=== PATIENT | female | born 1995 | race Caucasian/White ===

== ENCOUNTER 2021-05-08 10:42 | Observation (INO) | payer OTHER ==
[~2021-05-08] VITALS: Ht 170.2 cm; Wt 90.9 kg
[2021-05-08] MEDS ORDERED: RHOGAM FROM BLOOD BANK 1 NOTE EA IM/IV ONE (14:30)
[2021-05-25] MEDS ORDERED: OXYC1TAB12 PO (06:02)
== END 2021-05-08 14:35 | disposition home or self-care (01) ==
LOC: LDOP 10:42 → LDIP 11:46
PROVIDERS: ADMIT Obstetrics & Gynecology; ATTEND Obstetrics & Gynecology
DX: Z04.1 Encounter for examination and observation following transport accident (principal); Z3A.37 37 weeks gestation of pregnancy; V53.6XXA Passenger in pick-up truck or van injured in collision with car, pick-up truck or van in traffic accident, initial encounter; Y93.89 Activity, other specified; Y92.488 Other paved roadways as the place of occurrence of the external cause
CPT/HCPCS: 36415; 59025; 85460; 85461; 86850; 86900; 96372; G0378; J2790; 36430

== ENCOUNTER 2021-05-22 10:20 | Inpatient (IN) | payer OTHER ==
[~2021-05-22] VITALS: Ht 170.2 cm; Wt 92.0 kg
[2021-05-22] MEDS ORDERED: METOCLOPRAMIDE 5 MG/ML, 2ML IV ONE (10:30)
[2021-05-22] MEDS ORDERED: SODIUM CITRATE/CITRIC ACID 30 ML UDC PO ONE (10:30)
[2021-05-22] MEDS ORDERED: LACTATED RINGERS 1,000 ML IV SCH (10:30)
[2021-05-22] MEDS ORDERED: LACTATED RINGERS 1,000 ML IVBOLUS ONE (10:30)
[2021-05-22] MEDS ORDERED: SODIUM CITRATE/CITRIC ACID 15 ML UDC ONE (11:00)
[2021-05-22] MEDS ORDERED: OXYTOCIN 30U/ 0.9% NaCL 500ML 500 ML ONE (11:01)
[2021-05-22] MEDS ORDERED: NEWBORN KIT ONE (11:02)
[2021-05-22 11:10] LABS: BASOPHILS % (AUTO) 1 % (0-1); EOSINOPHILS % (AUTO) 1 % (1-7); LYMPHOCYTES % (AUTO) 17 % (22-44); MEAN CORPUSCULAR HEMOGLOBIN 28.3 pg (27.0-34.8); MEAN CORPUSCULAR HGB CONC 34.8 g/dL (32.4-35.8); MEAN PLATELET VOLUME 8.1 fL (7.4-10.4); MONOCYTES % (AUTO) 4 % (2-9); NEUTROPHILS % (AUTO) 77 % (42-75); PLATELET COUNT 253 x10^3/uL (130-400); RED BLOOD COUNT 4.22 x10^6/uL (3.82-5.3)
[2021-05-22] MEDS ORDERED: DEXAMETHASONE 4 MG/ML, 1ML ONE (11:39)
[2021-05-22] MEDS ORDERED: ONDANSETRON 2MG/ML, 2ML ONE (11:39)
[2021-05-22] MEDS ORDERED: CEFAZOLIN 1,000 MG ONE (11:39)
[2021-05-22] MEDS ORDERED: EPHEDRINE 50 MG/ML, 1ML ONE (11:39)
[2021-05-22] MEDS ORDERED: KETOROLAC 30 MG/1 ML ONE (11:39)
[2021-05-22] MEDS ORDERED: OXYTOCIN 10 UNITS/ML, 1ML ONE (11:39)
[2021-05-22] MEDS ORDERED: PHENYLEPHRINE 10 MG/ML ONE (11:39)
[2021-05-22] MEDS ORDERED: EPHEDRINE 50 MG/ML, 1ML IVPush PRN (12:00)
[2021-05-22] MEDS ORDERED: PROMETHAZINE 25 MG/ML, 1ML IV PRN (12:00)
[2021-05-22] MEDS ORDERED: FENTANYL PF 100 MCG/2ML IV PRN (12:00)
[2021-05-22] MEDS ORDERED: ONDANSETRON 2MG/ML, 2ML IVPush PRN (12:00)
[2021-05-22] MEDS ORDERED: MEPERIDINE/PF 25MG/0.5ML IVPush PRN (12:00)
[2021-05-22] MEDS ORDERED: LABETALOL 5MG/ML, 20ML IV PRN (12:00)
[2021-05-22] MEDS ORDERED: ALBUTEROL SULFATE 2.5 MG/3 ML NPPB PRN (12:00)
[2021-05-22] MEDS ORDERED: METOPROLOL 1 MG/ML, 5ML IV PRN (12:00)
[2021-05-22] MEDS ORDERED: HYDROcodone/APAP 7.5-325MG/15ML UDC PO PRN (12:00)
[2021-05-22] MEDS ORDERED: HYDROmorphone 2 MG/ML, 1ML IVPush PRN (12:00)
[2021-05-22] MEDS ORDERED: OXYcodone 5 MG/5 ML ORAL.SOL UDC PO PRN (12:00)
[2021-05-22] MEDS ORDERED: hydrALAzine 20 MG/ML, 1ML IV PRN (12:00)
[2021-05-22] MEDS ORDERED: HYDROmorphone 2 MG/ML, 1ML ONE (13:00)
[2021-05-22] MEDS ORDERED: FENTANYL PF 100 MCG/2ML ONE (13:00)
[2021-05-22 16:00] VITALS: BP 120/80
[2021-05-22] MEDS ORDERED: ONDANSETRON 2MG/ML, 2ML IV PRN (16:00)
[2021-05-22] MEDS: OXYTOCIN 30U/ 0.9% NaCL 500ML 500 ML IV SCH (16:00)
[2021-05-22] MEDS: LACTATED RINGERS 1,000 ML IV SCH ×2 (16:00)
[2021-05-22] MEDS ORDERED: ACETAMINOPHEN 325 MG TABLET PO PRN ×2 (16:00)
[2021-05-22] MEDS ORDERED: MISOPROSTOL 200 MCG TABLET PR PRN (16:00)
[2021-05-22] MEDS ORDERED: MORPHINE SULFATE 4 MG/ML, 1ML IVPush PRN (16:00)
[2021-05-22] MEDS ORDERED: morphine SULFATE 10 MG/ML, 1ML IVPush PRN ×2 (16:00→16:30)
[2021-05-22] MEDS: OXYcodone/APAP 5/325MG TABLET PO PRN ×2 (17:29→22:14)
[2021-05-22] MEDS: KETOROLAC 30 MG/1 ML IV SCH (19:45)
[2021-05-22 20:00] VITALS: BP 115/69
[2021-05-22 23:54] VITALS: BP 106/68
[2021-05-23] MEDS: KETOROLAC 30 MG/1 ML IV SCH ×4 (01:45→19:40)
[2021-05-23] MEDS: OXYcodone/APAP 5/325MG TABLET PO PRN ×7 (01:50→20:28)
[2021-05-23] MEDS: LACTATED RINGERS 1,000 ML IV SCH ×2 (02:00)
[2021-05-23] MEDS: OXYTOCIN 30U/ 0.9% NaCL 500ML 500 ML IV SCH (02:00)
[2021-05-23 04:00] VITALS: BP 109/64
[2021-05-23 07:30] VITALS: BP 111/69
[2021-05-23] MEDS: PRENATAL VIT/IRON/FA 1 EACH TABLET PO SCH (10:35)
[2021-05-23] MEDS: DOCUSATE 100 MG CAPSULE PO PRN ×2 (10:35→20:28)
[2021-05-23] MEDS ORDERED: RHOGAM FROM BLOOD BANK 1 NOTE EA IM/IV ONE (19:30)
[2021-05-23 19:45] VITALS: BP 126/77
[2021-05-23] MEDS: SIMETHICONE 80 MG CHEW TAB PO PRN (20:29)
[2021-05-24] MEDS: KETOROLAC 30 MG/1 ML IV SCH ×3 (02:17→13:30)
[2021-05-24] MEDS: OXYcodone/APAP 5/325MG TABLET PO PRN ×6 (05:06→22:22)
[2021-05-24 06:58] LABS: BASOPHILS % (AUTO) 1 % (0-1); EOSINOPHILS % (AUTO) 2 % (1-7); LYMPHOCYTES % (AUTO) 21 % (22-44); MEAN CORPUSCULAR HEMOGLOBIN 28.1 pg (27.0-34.8); MEAN CORPUSCULAR HGB CONC 33.8 g/dL (32.4-35.8); MEAN PLATELET VOLUME 7.9 fL (7.4-10.4); MONOCYTES % (AUTO) 5 % (2-9); NEUTROPHILS % (AUTO) 71 % (42-75); PLATELET COUNT 235 x10^3/uL (130-400); RED CELL DISTRIBUTION WIDTH 14.4 % (9.6-15.2)
[2021-05-24 07:00] VITALS: BP 111/74
[2021-05-24] MEDS: SIMETHICONE 80 MG CHEW TAB PO PRN ×2 (08:03→17:53)
[2021-05-24] MEDS: PRENATAL VIT/IRON/FA 1 EACH TABLET PO SCH (08:03)
[2021-05-24] MEDS: DOCUSATE 100 MG CAPSULE PO PRN ×2 (08:03→22:22)
[2021-05-24] MEDS: IBUPROFEN 600 MG TABLET PO PRN ×2 (15:08→22:22)
[2021-05-24 18:50] VITALS: BP 145/80
[2021-05-25] MEDS: OXYcodone/APAP 5/325MG TABLET PO PRN ×4 (03:09→16:09)
[2021-05-25] MEDS: IBUPROFEN 600 MG TABLET PO PRN ×2 (05:15→11:23)
[2021-05-25] MEDS ORDERED: DOCU-131 PO (06:02)
[2021-05-25] MEDS ORDERED: IBUP-1222 PO (06:02)
[2021-05-25] MEDS ORDERED: OXYC1TAB14 PO (06:02)
[2021-05-25] MEDS: DOCUSATE 100 MG CAPSULE PO PRN (07:34)
[2021-05-25] MEDS: PRENATAL VIT/IRON/FA 1 EACH TABLET PO SCH (07:34)
[2021-05-25] MEDS: SIMETHICONE 80 MG CHEW TAB PO PRN (07:35)
[2021-05-25 11:00] VITALS: BP 126/86
== END 2021-05-25 17:20 | disposition home or self-care (01) | DRG 788 ==
LOC: LDIP 10:20 → 2NW 15:51
PROVIDERS: ADMIT Obstetrics & Gynecology; ATTEND Obstetrics & Gynecology
PROC: 10D00Z1 Extraction of Products of Conception, Low, Open Approach (ICD-10-PCS; principal; 2021-05-22)
PROC: 3E0234Z Introduction of Serum, Toxoid and Vaccine into Muscle, Percutaneous Approach (ICD-10-PCS; 2021-05-23)
DX: O36.63X0 Maternal care for excessive fetal growth, third trimester, not applicable or unspecified (principal); Z37.0 Single live birth; Z20.822 Contact with and (suspected) exposure to COVID-19; Z3A.39 39 weeks gestation of pregnancy
CPT/HCPCS: 36415; 85025; 85461; 86592; 86850; 86900; 87635; G0378; J0690; J1100; J1170; J1885; J2405; J2790; J3010; J2270; J2370; J2590; J2765; J7120